=== PATIENT | female | born 1965 | race Caucasian/White ===

== ENCOUNTER 2016-10-23 16:08 | Emergency (ER) | payer SELFPAY ==
[~2016-10-23] VITALS: Ht 154.9 cm; Wt 72.6 kg
[2016-10-23] MEDS ORDERED: ONDANSETRON 4 MG ODT PO ONE (16:10)
[2016-10-23] MEDS ORDERED: oxyCODONE/APAP 5/325 MG 1 TAB TAB PO ONE (16:10)
[2016-10-23] MEDS ORDERED: IBUPROFEN 600 MG TAB PO ONE (16:10)
[2016-10-23 16:25] VITALS: BP 159/84
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
--- NOTE | 2016-10-23 17:49 | NUR ---
PATIENT WAS MEDICATED PER MD ORDER STILL COMPLAINS OF PAIN.
[2016-10-23] MEDS ORDERED: HYDROmorphone 1 MG/ML AMP IM ONE (18:10)
[2016-10-23] MEDS ORDERED: ONDANSETRON 4 MG/2 ML VIAL IM ONE (18:10)
--- NOTE | 2016-10-23 18:54 | NUR ---
APTIENT MEDICATED PER ORDER STATES PAIN IS A 6 PRIOR TO MEDICATION.
[2016-10-23 19:36] VITALS: BP 134/78
--- NOTE | 2016-10-23 19:36 | NUR ---
Patient discharged with v/s stable. Written and verbal after care instructions given and explained. Patient alert, oriented and verbalized understanding of instructions. Ambulatory with steady gait. All questions addressed prior to discharge. ID band removed. Patient advised to follow up with PMD. Rx of ZOFRAN 4MG, DILAUDID 2MG given. Patient educated on indication of medication including possible reaction and side effects. Opportunity to ask questions provided and answered.
== END 2016-10-23 19:36 | disposition home or self-care (01) ==
LOC: MED 16:08
DX: M25.511 Pain in right shoulder (principal); V43.62XA Car passenger injured in collision with other type car in traffic accident, initial encounter; Y93.I9 Activity, other involving external motion; Y92.488 Other paved roadways as the place of occurrence of the external cause; Y99.8 Other external cause status
CPT/HCPCS: 71101; 73000; 73030; 73080; 73110; 93005; 96372; 99284; J1170; J2405; S0119